=== PATIENT | female | born 1995 | race Caucasian/White ===

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

== ENCOUNTER 2017-01-19 23:37 | Emergency (ER) | payer OTHER ==
[~2017-01-19] VITALS: Ht 149.9 cm; Wt 63.5 kg
[~2017-01-19 23:37] MED LIST: AMOXICILLIN875 M1 PO; IBUPROFEN800 M1 PO; PREDNISONE10 M2 PO
--- NOTE | 2017-01-20 00:49 | ED GI/GU/ABDOMINAL COMPLAINT ---
History of Present Illness General Chief Complaint: Female Urogenital Problems Stated Complaint: " I HAVE A CYST ON MY VAGINA" Source: patient, family Exam Limitations: no limitations Vital Signs & Intake/Output Vital Signs & Intake/Output Vital Signs Date Time Temp Pulse Resp B/P B/P Pulse O2 O2 Flow FiO2 Mean Ox Delivery Rate 01/20 0235 99.0 92 18 128/84 97 Room Air 01/20 0029 99.0 92 16 121/80 98 Room Air Allergies Coded Allergies: No Known Allergies (12/17/16) Reconcile Medications Amoxicillin 875 MG TABLET 1 TAB PO BID strep throat Cephalexin (Keflex) 500 MG CAPSULE 1 CAP PO 4 TIMES/DAY infection Ibuprofen 800 MG TABLET 1 TAB PO TID PRN pain Ibuprofen 800 MG TABLET 1 TAB PO Q8H PRN pain/fevers Prednisone 10 MG TABLET 3 TAB PO DAILY PHARYNGITIS Sulfamethoxazole/Trimethoprim (Bactrim Ds Tablet) 800 MG-160 MG TABLET 1 TAB PO BID infection Triage Note: PT TO ED WITH COMPLAINTS OF CYST TO RIGHT SIDE OF VAGINA. PT STATES SHE NOTICED CYST 2 DAYS AGO AND IT HAS DOUBLED IN SIZE SINCE THEN. PT STATES THAT THE CYST IS THE SIZE OF A GOLF BALL AND VERY PAINFUL. PT ALSO COMPLAINS OF WHITE THICK DISCHARGE THAT STARTED TODAY FROM VAGINA. PT TEMP 99.0 UPON ARRIVAL. Triage Nurses Notes Reviewed? yes ? n Is pt currently ? No Onset: Gradual Duration: day(s):, getting worse Timing: recent history Quality/Severity: burning Location: right labia Radiation: no radiation Activities at Onset: none Modifying Factors: Improves With: rest. Worsens With: palpation. Associated Symptoms: swelling, tenderness. HPI: 21-year-old woman presents with swelling of her right labia. She states that the symptoms began one to 2 days ago, "but then today it seemed to double in size. It is now the size of a golfball." She notes tenderness and swelling. She has no dysuria diarrhea vaginal discharge. She notes that there was a slight discharge when she pressed on it. She is otherwise well and has no other concerns. Past History Travel History Traveled to [place] past 21 day No Medical History Any Pertinent Medical History? see below for history Neurological: NONE EENT: NONE Cardiovascular: NONE Respiratory: NONE Gastrointestinal: NONE Hepatic: NONE Renal: NONE Musculoskeletal: NONE Psychiatric: anxiety Endocrine: NONE Blood Disorders: NONE Cancer(s): NONE Surgical History Surgical History: non-contributory Psychosocial History What is your primary language Montserratian Tobacco Use: Current Daily Use Daily Tobacco Use Amount/Type: => 5 Cigarettes daily ETOH Use: occasional use Illicit Drug Use: marijuana Family History Hx Contributory? No Review of Systems Review of Systems Constitutional: Reports: no symptoms. EENTM: Reports: no symptoms. Respiratory: Reports: no symptoms. Cardiovascular: Reports: no symptoms. GI: Reports: no symptoms. Genitourinary: Reports: no symptoms. Musculoskeletal: Reports: no symptoms. Skin: Reports: no symptoms. Neurological/Psychological: Reports: no symptoms. Hematologic/Endocrine: Reports: no symptoms. Immunologic/Allergic: Reports: no symptoms. All Other Systems: Reviewed and Negative Physical Exam Physical Exam General Appearance: well developed/nourished, mild distress Head: atraumatic, normal appearance Eyes: Bilateral: normal appearance. Ears, Nose, Throat, Mouth: hearing grossly normal Neck: supple Respiratory: normal breath sounds Gastrointestinal: normal bowel sounds, soft, non-tender Pelvic: right labia with a 1 cm abscess in the Bartholin's gland region, associated with tenderness to palpation . No chel discharge. No drainage. Core Measures ACS in differential dx? No Severe Sepsis Present: No Septic Shock Present: No Progress Differential Diagnosis: abscess versus phlegmon versus cellulitis versus other Plan of Care: Abscess drained, see below small amount of bloody pus expressed Initial ED EKG: none Departure Departure Disposition: HOME OR SELF CARE Condition: Stable Clinical Impression Primary Impression: Labial abscess Referrals: PAN NAVA MD (PCP/Family) Departure Forms: Customer Survey General Discharge Information Prescriptions: Current Visit Scripts Cephalexin (Keflex) 1 CAP PO 4 TIMES/DAY #40 CAP Sulfamethoxazole/Trimethoprim (Bactrim Ds Tablet) 1 TAB PO BID #20 TAB Ibuprofen 1 TAB PO TID PRN pain #30 TAB Procedures Incision and Drainage Site: right labia/bartholin's gland Blade Size: 11 I & D Procedure: Yes: betadine prep, sterile drapes applied, sterile dressing applied, wick placed. Progress: small amount of push... mostly phlegmon to deep palpation.
[2017-01-20] MEDS ORDERED: KEFLEX500 M1 PO (01:43)
[2017-01-20] MEDS ORDERED: BACTRIM DS TAB1 EACH PO (01:43)
[2017-01-20] MEDS ORDERED: IBUPROFEN800 M1 PO (01:43)
[2017-01-20 02:35] VITALS: BP 128/84
[2017-01-21] MEDS ORDERED: DIFLUCAN150 M1 PO (20:08)
== END 2017-01-20 02:40 ==
LOC: ERH 23:37
DX: N76.4 Abscess of vulva (principal)

== ENCOUNTER 2017-01-21 19:17 | Emergency (ER) | payer OTHER ==
[~2017-01-21] VITALS: Ht 149.9 cm; Wt 63.5 kg
[~2017-01-21 19:17] MED LIST changes: +BACTRIM DS TAB1 EACH PO; +KEFLEX500 M1 PO
--- NOTE | 2017-01-21 19:22 | ED GI/GU/ABDOMINAL COMPLAINT ---
History of Present Illness General Chief Complaint: General Adult Stated Complaint: PER PT "DR. LIRIANO TOLD ME TO COME BACK AT 7" Source: patient Exam Limitations: no limitations Vital Signs & Intake/Output Vital Signs & Intake/Output Vital Signs Date Time Temp Pulse Resp B/P B/P Pulse O2 O2 Flow FiO2 Mean Ox Delivery Rate 01/22 2024 98.7 74 18 102/60 98 Room Air 01/22 1920 98.7 78 18 93/55 98 Room Air Allergies Coded Allergies: No Known Allergies (12/17/16) Reconcile Medications Amoxicillin 875 MG TABLET 1 TAB PO BID strep throat Cephalexin (Keflex) 500 MG CAPSULE 1 CAP PO 4 TIMES/DAY infection Fluconazole (Diflucan) 150 MG TABLET 1 TAB PO ONCE YEAST INFECTION TAKE TODAY AND REPEAT IN 1 WEEK. Ibuprofen 800 MG TABLET 1 TAB PO TID PRN pain Ibuprofen 800 MG TABLET 1 TAB PO Q8H PRN pain/fevers Prednisone 10 MG TABLET 3 TAB PO DAILY PHARYNGITIS Sulfamethoxazole/Trimethoprim (Bactrim Ds Tablet) 800 MG-160 MG TABLET 1 TAB PO BID infection Triage Note: 21 YO FEMALE TO TRIAGE FOR PACKING REMOVAL FROM ABCESS ON VAGINA. Triage Nurses Notes Reviewed? yes ? n Is pt currently ? No Onset: Gradual Duration: day(s): Timing: recent history Quality/Severity: throbbing Location: vaginal Radiation: no radiation Activities at Onset: "I am here for follow up." Modifying Factors: Worsens With: palpation. Associated Symptoms: "A lot of pus came out where you cut." HPI: 21-year-old woman presents for follow-up. Yesterday morning she had of Bartholin's gland abscess drained. The wound was packed. She comes for follow- up. She states that over the course of the next 24 hours there was a copious amount of purulent drainage. She noted that the redness and swelling actually decreased. She notes also that she has a white cheesy discharge from her vagina that is not painful and slightly itchy. Past History Travel History Traveled to [place] past 21 day No Medical History Any Pertinent Medical History? see below for history Neurological: NONE EENT: NONE Cardiovascular: NONE Respiratory: NONE Gastrointestinal: NONE Hepatic: NONE Renal: NONE Musculoskeletal: NONE Psychiatric: anxiety Endocrine: NONE Blood Disorders: NONE Cancer(s): NONE Surgical History Surgical History: non-contributory Psychosocial History What is your primary language Upper Sorbian Tobacco Use: Never used Family History Hx Contributory? No Review of Systems Review of Systems Constitutional: Reports: no symptoms. EENTM: Reports: no symptoms. Respiratory: Reports: no symptoms. Cardiovascular: Reports: no symptoms. GI: Reports: no symptoms. Genitourinary: Reports: no symptoms. Musculoskeletal: Reports: no symptoms. Skin: Reports: no symptoms. Neurological/Psychological: Reports: no symptoms. Hematologic/Endocrine: Reports: no symptoms. Immunologic/Allergic: Reports: no symptoms. All Other Systems: Reviewed and Negative Physical Exam Physical Exam General Appearance: well developed/nourished, no apparent distress, alert Head: atraumatic, normal appearance Eyes: Bilateral: normal appearance. Ears, Nose, Throat, Mouth: hearing grossly normal Neck: normal inspection Respiratory: no respiratory distress Gastrointestinal: normal bowel sounds, soft, non-tender Pelvic: R bartholin's area with no erythema, markedly less swelling, minimal tenderness.... there is a white cheesy discharge from vagina, mild. , pt declines speculum exam Core Measures ACS in differential dx? No Severe Sepsis Present: No Septic Shock Present: No Progress Differential Diagnosis: abscess vs vaginal yeast infection vs other. Plan of Care: Orders Procedure Date/time Status TRICHOMONAS 01/22 1944 Complete POTASSIUM HYDROXIDE (YRN) 01/22 1944 Complete GENITAL CULTURE 01/22 1944 Active CHLAMYDIA-GC DNA PROBE 01/22 1944 Active Microbiology 01/21 2005 GENITAL: GC DNA Probe - RECD 01/21 2005 GENITAL: Chlamydia DNA Probe (RASTA) - RECD 01/21 2005 GENITAL: YRN Preparation - COMP 01/21 2005 GENITAL: Trichomonas Preparation - COMP 01/21 2005 GENITAL: Genital Culture - RECD Initial ED EKG: none Departure Departure Disposition: HOME OR SELF CARE Condition: Stable Clinical Impression Primary Impression: Bartholin's gland abscess Secondary Impressions: Vaginal yeast infection Referrals: PAN NAVA MD (PCP/Family) Departure Forms: Customer Survey General Discharge Information Prescriptions: Current Visit Scripts Fluconazole (Diflucan) 1 TAB PO ONCE #2 TAB TAKE TODAY AND REPEAT IN 1 WEEK. Comments pt has appointment with obstetrics/gynecology nurse tomorrow afternoon... she declines speculum exam, but given white cheesy discharge, will rx with diflucan. pt encouraged to continue keflex/bactrim. cultures sent. close follow up advised.
[2017-01-21] MEDS ORDERED: DIFLUCAN150 M1 PO (20:08)
[2017-01-21 20:24] VITALS: BP 102/60
== END 2017-01-21 20:26 ==
LOC: ERH 19:17
DX: B37.3 Candidiasis of vulva and vagina (principal); Z48.01 Encounter for change or removal of surgical wound dressing
CPT/HCPCS: 87070; 87071; 87491; 87591